=== PATIENT | male | born 1965 | race Caucasian/White ===

== ENCOUNTER 2020-07-11 10:27 | Outpatient (CLI) | payer OTHER | END 2020-07-11 10:28 | disposition home or self-care (01) | LOC: DTY/OP 10:27 | PROVIDERS: ATTEND Surgery | DX: I10 Essential (primary) hypertension (principal); E11.9 Type 2 diabetes mellitus without complications | CPT/HCPCS: 97802 ==

== ENCOUNTER 2021-02-18 06:08 | Inpatient (IN) | payer OTHER ==
[2021-02-18] MEDS ORDERED: cefOXitin Sodium/Dextrose 2 GM/50 ML BAG ONE (06:27)
[2021-02-18] MEDS ORDERED: Scopolamine 1.5 mg/72 hour Patch ONE (06:27)
[2021-02-18] MEDS ORDERED: Enoxaparin Sodium 40 MG/0.4 ML SYRINGE ONE (06:29)
[2021-02-18] MEDS ORDERED: Fentanyl 250 MCG/5 ML VIAL ONE (06:35)
[2021-02-18] MEDS ORDERED: Midazolam HCl 2 mg/2 ml Vial ONE (06:35)
[2021-02-18] MEDS ORDERED: Bupivacaine 0.25% HCL 30 ML VIAL ONE (06:41)
[2021-02-18] MEDS ORDERED: Lidocaine 1% w/Epinephrine 1:100K 20 ML VIAL ONE (06:41)
[2021-02-18] MEDS ORDERED: Dexamethasone 20 MG/5 ML VIAL ONE (07:36)
[2021-02-18] MEDS ORDERED: Ondansetron PF 4 MG/2 ML Vial ONE ×2 (07:36→11:04)
[2021-02-18] MEDS ORDERED: ePHEDrine 50 MG/ML VIAL ONE (07:36)
[2021-02-18] MEDS ORDERED: PROPOFOL 200 MG/20 ML VIAL ONE (07:36)
[2021-02-18] MEDS ORDERED: Glycopyrrolate 0.2 MG/ML 5 ML SYRINGE ONE (07:36)
[2021-02-18] MEDS ORDERED: PHENYLEPHRINE-NS 100 MCG/ML 10 ML SYRINGE ONE (07:36)
[2021-02-18] MEDS ORDERED: Rocuronium Bromide 10 MG/ML (10ML VIAL) ONE (07:36)
[2021-02-18] MEDS ORDERED: Lidocaine 1% PF 5 ML VIAL ONE (07:36)
[2021-02-18] MEDS ORDERED: hydrALAZINE 20 MG/ML VIAL SLOW IVP PRN (10:33)
[2021-02-18] MEDS ORDERED: Dextrose 5% in Water 1,000 ML IV PRN (10:33)
[2021-02-18] MEDS ORDERED: Hydrocodone-Acetamin 15 ML UDCUP PO PRN (10:33)
[2021-02-18] MEDS ORDERED: HumaLOG 300 UNITS/3 ML VIAL SC PRN (10:33)
[2021-02-18] MEDS ORDERED: Dextrose 50% Abboject 50 ML SYRINGE SLOW IVP PRN (10:33)
[2021-02-18] MEDS ORDERED: Promethazine HCl 25 MG/ML VIAL IM PRN ×2 (10:33→10:37)
[2021-02-18] MEDS ORDERED: Ondansetron PF 4 MG/2 ML Vial IVP PRN (10:33)
[2021-02-18] MEDS ORDERED: Morphine 4 MG/ML VIAL SLOW IVP PRN (10:33)
[2021-02-18] MEDS ORDERED: diphenhydrAMINE 50 MG/ML VIAL IVP PRN (10:33)
[2021-02-18] MEDS ORDERED: Promethazine HCl 25 MG/ML VIAL IVPB PRN (10:37)
[2021-02-18] MEDS ORDERED: Ondansetron HCl/PF 4 MG/2 ML Vial IVP PRN (10:37)
[2021-02-18] MEDS ORDERED: Promethazine HCl 25 MG/ML VIAL ONE (11:17)
[2021-02-18] MEDS ORDERED: Sodium Chloride 0.9% (PF) 10 ML VIAL FS PRN (11:30)
[2021-02-18] MEDS ORDERED: Metoclopramide HCl 10 MG/2 ML VIAL ONE (12:00)
[2021-02-18] MEDS: D5 1/2 NS w/20 mEq KCL 1,000 ML IV SCH ×2 (12:46→17:47)
[2021-02-18] MEDS: Ketorolac Tromethamine 30 MG/ML VIAL IVP SCH ×2 (12:46→17:15)
[2021-02-18 13:29] VITALS: BMI 43.7
[2021-02-18] MEDS: Carvedilol 6.25 MG TAB PO SCH (20:18)
[2021-02-19] MEDS: Ketorolac Tromethamine 30 MG/ML VIAL IVP SCH ×3 (00:13→13:01)
[2021-02-19 03:16] LABS: #Lymphocytes 1.1 thou/uL (1.20-3.40); #Monocytes 0.9 thou/uL (0.11-0.59); #Neutrophils 8.3 thou/uL (1.40-6.50); %Basophils 0.2 % (0.0-1.0); %Eosinophils 0.2 % (0.0-10.0); %Lymphocytes 10.9 % (21.0-51.0); %Monocytes 8.7 % (0.0-10.0); Hemoglobin 13.3 g/dL (14.0-18.0); Mean Corpuscular HGB CONC 35.2 g/dL (32.0-36.0); Mean Corpuscular Hemoglobin 32.5 pg (27.0-31.0); Mean Corpuscular Volume 92.4 fL (78.0-98.0); Mean Platelet Volume 7.2 fL (7.4-10.4); Platelet Count 225 thou/uL (130-400); RBC Distribution Width 12.3 % (11.5-14.5); Red Blood Cell (RBC) Count 4.09 mill/uL (4.70-6.10); White Blood Cell (WBC) Count 10.4 thou/uL (4.8-10.8)
[2021-02-19 03:44] LABS: Anion Gap 14 mmol/L (10-20); BUN (Urea Nitrogen) 14 mg/dL (8.4-25.7); Calc. Creatinine Clearance 119 mL/min (70-130); Calcium 8.6 mg/dL (7.8-10.44); Carbon Dioxide 24 mmol/L (22-29); Chloride 104 mmol/L (98-107); Glucose 126 mg/dL (70-105); Sodium 138 mmol/L (136-145)
[2021-02-19] MEDS: D5 1/2 NS w/20 mEq KCL 1,000 ML IV SCH ×2 (04:45→07:44)
[2021-02-19] MEDS: Carvedilol 6.25 MG TAB PO SCH (07:55)
[2021-02-19] MEDS ORDERED: Enoxaparin Sodium 40 MG/0.4 ML SYRINGE SC SCH (09:00)
[2021-02-19] MEDS ORDERED: Pantoprazole 40 MG VIAL IVP SCH (09:00)
[2021-02-19 11:25] VITALS: BP 149/70; TEMP 99.1
[2021-02-19] MEDS ORDERED: FLU VACC QS2021-22(6MOS UP)/PF 60 MCG/0.5 ML SYRINGE IM ONE (13:00)
[2021-02-20] MEDS ORDERED: Losartan 25 MG TAB PO SCH (09:00)
== END 2021-02-19 14:30 | disposition home or self-care (01) | DRG 621 ==
LOC: SURG A 06:08 → SURG B 12:22
PROVIDERS: ADMIT Surgery; ATTEND Surgery
PROC: 0DB64Z3 Excision of Stomach, Percutaneous Endoscopic Approach, Vertical (ICD-10-PCS; principal; 2021-02-18)
PROC: 8E0W4CZ Robotic Assisted Procedure of Trunk Region, Percutaneous Endoscopic Approach (ICD-10-PCS; 2021-02-18)
DX: E66.01 Morbid (severe) obesity due to excess calories (principal); I10 Essential (primary) hypertension; E11.9 Type 2 diabetes mellitus without complications; E78.5 Hyperlipidemia, unspecified; Z90.89 Acquired absence of other organs; Z90.5 Acquired absence of kidney; Z68.41 Body mass index [BMI] 40.0-44.9, adult
CPT/HCPCS: 36415; 36416; 80048; 85025; 88307; 93005; 93010; 94760; C9113; J0360; J0694; J1100; J1650; J1885; J2250; J2405; J2550; J2704; J2765; J3010; J3480; J3490; S0020